=== PATIENT | female | born 1965 | race Caucasian/White ===

== ENCOUNTER 2017-06-05 12:12 | Day surgery (SDC) | payer BC ==
[2017-06-05] MEDS ORDERED: MIDAZOLAM 1 MG/ML 2 ML INJ ×2 (14:00→14:01)
[2017-06-05] MEDS ORDERED: FENTAnyl 50 MCG/ML VIAL (14:01)
== END 2017-06-05 16:20 | disposition home or self-care (01) ==
LOC: GIL 12:12
DX: Z12.11 Encounter for screening for malignant neoplasm of colon (principal)
CPT/HCPCS: 45378